=== PATIENT | female | born 1960 | race African-American/Black ===

== ENCOUNTER 2024-03-27 09:50 | Outpatient (AMB) | payer OTHER, SELFPAY ==
[2024-03-27 10:10] VITALS: PULSE 85; O2SAT 97; BMI 30.3
--- NOTE | 2024-03-27 10:10 | MHC.OFFVIS ---
Vital Signs 03/27/24 10:10 Height 5 ft 9 in Weight 205 lb BMI 30.3 Pulse 85 Pulse Source Pulse Oximeter Pulse Oximetry (%) 97 Oxygen Delivery Method Room Air Intake Visit Reasons: sarcoidosis Grazing Examiner Required: No Allergies metronidazole Adverse Reaction (Severe, Verified 03/27/24 10:12) Difficulty Swallowing methotraxate Adverse Reaction (Intermediate, Uncoded 03/27/24 10:37) Difficulty Swallowing HPI Comments Details: The patient is here for pulmonary evaluation. The patient is a 63 year woman with a known history of sarcoidosis. Apparently she had been diagnosed now for many years. The patient did undergo endobronchial ultrasound bronchoscopy for her lymphadenopathy. Positive for granulomas consistent with sarcoidosis. Does also a family history. At that time she had been more symptomatic and she did go on prednisone which she did not tolerate. Subsequently after that she was placed on immunomodulator including methotrexate and she had an adverse reaction with worsening rash. Therefore she stopped that as well. Currently she has not doing much. As far as her respiratory symptoms she has this cough. She describes it a ?smoker's cough?. Moderate severity. She does not bring up any phlegm. The patient does not have any inhalers. She feels like something within her trachea that is abnormal. She is wondering if it should be visualized. In addition to that during the exam she did cough and it sounded like a barky cough. So I do agree the trachea appears to be somewhat inflamed. She may have a component of tracheomalacia however. In addition to that the patient did have an increased heart rate. She has not had an EKG. She understands sarcoid can manifesting different ways. Therefore is reasonable for her to undergo an EKG. The patient should also have a chest x-ray and blood work to assess especially her Mark level and see is elevated to suggest any sarcoid activity. She does have her eyes checked regularly. No evidence of any sarcoid in her eyes. She sometimes have skin changes and I do believe that those are related to sarcoid. We are going to go ahead and start her on inhaled cortical steroids. She does not want taking systemic steroids at this time which is very reasonable. After the blood work EKG and chest x-ray will follow-up. If she has any worsening symptoms she can call. If her x-ray is abnormal I will let her know that she will need a CT scan. Will consider bronchoscopy if is not clear. [facility] Medical History (Updated 03/27/24 @ 21:21 by Jaxon Worrell MD) Tachycardia Chronic cough Sarcoidosis Social History (Updated 03/27/24 @ 10:14 by JAMES Almonte) Patient Tobacco Use Status: Never used Tobacco Review of Systems Const Denies fever(s) Eyes Reports no additional complaints ENT Denies change in voice Card Denies chest pain Resp Denies chest congestion, Reports cough and Denies wheezing GI Reports no additional complaints Musc Reports no additional complaints Skin/Breast Reports rash Neuro Reports no additional complaints Norris/Lymph Denies easy bruising and Denies lymphadenopathy Aller/Immun Denies wheezing Physical Exam Vital Signs: Last Vital Signs Pulse 85 03/27/24 10:10 Pulse Ox 97 03/27/24 10:10 Oxygen Delivery Method Room Air 03/27/24 10:10 BMI result Body Mass Index 30.3 Const General: comfortable HEENT Head: Yes normocephalic Eyes General: appearance normal, both eyes and all related structures Neck Neck: Yes supple Chest Chest palpation & inspection: normal inspection of the chest Resp Effort & Inspection: Actively coughing (croupy) Cardio Rate: tachycardic Rhythm: regular rhythm Heart sounds: S1 normal heart sound present and S2 normal heart sound present GI Palpation (GI): Soft to palpation Skin Lesions: lesion noted (hypopigmented macules ) Extrem General: Yes no clubbing, cyanosis or edema Assessment & Plan Assessment & Plan (1) Sarcoidosis: Code(s): D86.9 - Sarcoidosis, unspecified Category: Medical (2) Chronic cough: Code(s): R05.3 - Chronic cough Category: Medical (3) Tachycardia: Code(s): R00.0 - Tachycardia, unspecified Category: Medical Plan CXR EKG Bloodwork Start QVAR would benefit from PFTs consider bronchoscopy if no better F/U 2-3 months Orders: Orders XR chest 2V Today D86.9 - Sarcoidosis, unspecified Angiotensin Converting Enzyme Today D86.9 - Sarcoidosis, unspecified Erythrocyte Sedimentation Rate Today D86.9 - Sarcoidosis, unspecified PITA Reflex Titer and Pattern Today D86.9 - Sarcoidosis, unspecified ECG 12 lead EKG Today J44.9 - Chronic obstructive pulmonary disease, unspecified Complete Blood Count Auto Diff Today D86.9 - Sarcoidosis, unspecified Medications: New beclomethasone dipropionate 80 mcg/actuation (Qvar RediHaler) 1 inh inhalation BID 10.6 grams 11RF 30 days Coding Level of Care Code New Pt Level 4 (63793) Diagnoses Sarcoidosis D86.9 Chronic cough R05.3 Tachycardia R00.0 Time Spent (min) 40
== END 2024-03-27 10:53 | disposition home or self-care (01) ==
PROVIDERS: PCP Hospitalist; Visit Provider Hospitalist
DX: D86.9 Sarcoidosis, unspecified (principal); R05.3 Chronic cough; R00.0 Tachycardia, unspecified
CPT/HCPCS: 99204

== ENCOUNTER → 2024-03-27 09:50 | Outpatient (BNVA) | payer OTHER, SELFPAY | PROVIDERS: PCP Internal Medicine; Visit Provider Hospitalist ==

== ENCOUNTER 2024-06-01 09:59 | Outpatient (AMB) | payer OTHER, SELFPAY ==
--- NOTE | 2024-06-01 10:19 | A.OFFVIS_ITS ---
Vital Signs 06/01/24 10:31 Height 5 ft 9 in Weight 198 lb BMI 29.2 Pulse 74 Pulse Source Pulse Oximeter Pulse Oximetry (%) 97 Oxygen Delivery Method Room Air Intake Visit Reasons: Sarcoidosis Bank President Required: No Allergies metronidazole Adverse Reaction (Severe, Verified 06/01/24 10:33) Difficulty Swallowing methotraxate Adverse Reaction (Intermediate, Uncoded 06/01/24 10:33) Difficulty Swallowing HPI Comments Details: The patient is a 63 year woman with a known history of sarcoidosis. Apparently she had been diagnosed now for many years. The patient did undergo endo bronchial ultrasound bronchoscopy for her lymphadenopathy. Positive for granulomas consistent with sarcoidosis. Does also a family history. At that time she had been more symptomatic and she did go on prednisone which she did not tolerate. Subsequently after that she was placed on immunomodulator including methotrexate and she had an adverse reaction with worsening rash. Therefore she stopped that as well. Currently she has not doing much. As far as her respiratory symptoms she has this cough. She describes it a ?smoker's cough?. Moderate severity. She does not bring up any phlegm. The patient does not have any inhalers. She feels like something within her trachea that is abnormal. She is wondering if it should be visualized. In addition to that during the exam she did cough and it sounded like a barky cough. So I do agree the trachea appears to be somewhat inflamed. She may have a component of tracheomalacia however. In addition to that the patient did have an increased heart rate. She has not had an EKG. She understands sarcoid can manifesting different ways. Therefore is reasonable for her to undergo an EKG. The patient should also have a chest x-ray and blood work to assess especially her Mark level and see is elevated to suggest any sarcoid activity. She does have her eyes checked regularly. No evidence of any sarcoid in her eyes. She sometimes have skin changes and I do believe that those are related to sarcoid. We are going to go ahead and start her on inhaled cortical steroids. She does not want taking systemic steroids at this time which is very reasonable. After the blood work EKG and chest x-ray will follow-up. If she has any worsening symptoms she can call. If her x-ray is abnormal I will let her know that she will need a CT scan. Will consider bronchoscopy if is not clear. 06/01/2024 the patient is here for a pulmonary follow-up visit. The patient overall has been doing well. She did start the inhaler has been helpful. Her cough and chest tightness have improved. She did have blood work including an Mark level which were all normal. Her eosinophils were also normal. Sedimentation rate normal. And she did have a chest x-ray with the evidence of any active disease. Therefore no evidence of any active sarcoid. The patient did not have an EKG. I did reassure her that there is no evidence of any active disease. The patient however states that she found that there was an issue going on in her attic. They found significant amount of mold due to water leakage. She is concerned that this could have been the result of her ongoing respiratory symptoms. She is going to have the mold abated at this time. Seems like will be a big to do as far as removal and repair. In the meantime she is going to continue with the current respiratory inhaler. Since the patient is doing well plan to follow-up in a year's time follow-up with an x-ray and blood work. The patient has any issues prior to that she will call for an earlier assessment. [facility] Medical History (Updated 03/27/24 @ 21:21 by Jaxon Worrell MD) Tachycardia Chronic cough Sarcoidosis Social History (Updated 03/27/24 @ 10:14 by JAMES Almonte) Patient Tobacco Use Status: Never used Tobacco Review of Systems Const Denies fever(s) Eyes Reports no additional complaints ENT Denies change in voice Card Denies chest pain Resp Denies chest congestion, Reports cough and Denies wheezing GI Reports no additional complaints Musc Reports no additional complaints Skin/Breast Reports rash Neuro Reports no additional complaints Norris/Lymph Denies easy bruising and Denies lymphadenopathy Aller/Immun Denies wheezing Physical Exam Vital Signs: Last Vital Signs Pulse 74 06/01/24 10:31 Pulse Ox 97 06/01/24 10:31 Oxygen Delivery Method Room Air 06/01/24 10:31 BMI result Body Mass Index 29.2 Const General: comfortable HEENT Head: Yes normocephalic Eyes General: appearance normal, both eyes and all related structures Neck Neck: Yes supple Chest Chest palpation & inspection: normal inspection of the chest Resp Effort & Inspection: normal respiratory effort Auscultation: clear to auscultation bilaterally Cardio Rate: tachycardic Rhythm: regular rhythm Heart sounds: S1 normal heart sound present and S2 normal heart sound present GI Palpation (GI): Soft to palpation Skin Lesions: lesion noted (hypopigmented macules ) Extrem General: Yes no clubbing, cyanosis or edema Assessment & Plan Assessment & Plan (1) Sarcoidosis: Code(s): D86.9 - Sarcoidosis, unspecified Category: Medical (2) Chronic cough: Code(s): R05.3 - Chronic cough Category: Medical Plan continue QVAR would benefit from PFTs next year CXR in 1 year Bloodwork in 1 year F/U 12 months Orders: Orders Pneumococcal 20 Immunization Today D86.9 - Sarcoidosis, unspecified Coding Level of Care Code Est Pt Level 4 (99622) Diagnoses Sarcoidosis D86.9 Chronic cough R05.3 Time Spent (min) 17
[2024-06-01 10:31] VITALS: PULSE 74; O2SAT 97; BMI 29.2
== END 2024-06-01 11:12 | disposition home or self-care (01) ==
PROVIDERS: PCP Hospitalist; Visit Provider Hospitalist
DX: D86.9 Sarcoidosis, unspecified (principal); R05.3 Chronic cough
CPT/HCPCS: 99214

== ENCOUNTER → 2024-06-01 09:59 | Outpatient (BNVA) | payer OTHER, SELFPAY | PROVIDERS: PCP Hospitalist; Visit Provider Hospitalist | DX: D86.9 Sarcoidosis, unspecified (principal); R05.3 Chronic cough; Z23 Encounter for immunization | CPT/HCPCS: 90471; 90677 ==

== ENCOUNTER 2025-07-03 09:20 | Outpatient (AMB) | payer OTHER, SELFPAY ==
--- OUTSIDE RECORDS SUMMARY | 2024-09-28 04:30 | XMS_ITS ---
Author Organization [facility] Address [address] [place] [address] Care Team Providers Care Hydraulic Boom Operator Name Role Phone MARK RATLIFF Primary Care Provider Radha Scott Unavailable [phone] REASON FOR VISIT 4 WK F/U Medications Medication SIG (Take, Route, Frequency, Duration) Notes Start Date End Date Status Wegovy 0.5 MG/0.5ML 0.5 mg Subcutaneous once a week; Duration: 30 day(s) 12/16/2022 Not-Taking Levocetirizine Dihydrochloride 5 MG 1 tablet in the evening Orally Once a day; Duration: 30 days 08/30/2024 Active Wegovy 1 MG/0.5ML 0.5 mL Subcutaneous once a week for 4 weeks; Duration: 30 day(s) 01/07/2023 Not-Taking Ciprofloxacin-dexAMETHason e 0.3-0.1 % 4 drops into affected ear Otic Twice a day; Duration: 7 days 08/30/2024 Active Doxycycline Hyclate 100 MG 1 tablet Oral ly every 12 hrs; Duration: 7 day(s) 01/18/2023 Not-Taking Meloxicam 7.5 MG 1 tablet with food d o not mix with over the counter nsaids Orally Once a day; Duration: 30 day(s) 09/15/2022 Not-Taking Sertraline HCl 100 MG TAKE 1 TABLET BY M OUTH DAILY; Duration: 90 days Active Ferrous Sulfate 325 (65 Fe) MG 1 tablet Orally Once a day; Duration: 90 days Active Lidocaine 5 % 1 patch remove after 12 hours Externally Once a day; Duration: 30 days 09/15/2022 Not-Taking Clotrimazole-Betamethasone 1-0.05 % 1 application Externally Twice a day; Duration: 30 days 05/10/2024 Not-Takin g Voltaren 1 % as directed External ly 3 times a day; Duration: 30 days 03/02/2023 Active amLODIPine Besylate 10 MG TAKE 1 TABLET BY MOUTH EVERY DAY; Duration: 90 Active FreeStyle Lancets - use up to 6 times a day to skin DX E11.8; Duration: 90 days 04/08/2023 Active Irbesartan-hydroCHLOROthia zide 300-12.5 MG TAKE 1 TABLET BY MOUTH EVERY DAY; Duration: 90 Active metFORMIN HCl ER 500 MG TAKE 1 TABLET BY MOUTH FOUR TIMES A DAY; Duration: 90 Active Aspirin 81 MG 1 tablet Orally Once a day; Duration: 90 days Active Multivitamin - 1 tablet Orally Once a day Active Ozempic (2 MG/DOSE) 8 MG/3ML 2 mg Subcutaneous once a week 05/10/2024 Active Encounters Encounter Location Date Provider Diagnosis [address] [address] 09/28/2024 Radha Scott Plan Of Treatment Next Appt Details Provider Name:MARK RATLIFF , 01/16/2026 08:00:00 AM, [address] [place] [address], [place], [address], Progress Notes * Hortencia HYLTON ADOB: [birth year] (64 yo F)Acc No.[id number]:09/28/2024 Progress Notes Patient: Hortencia FAN Provider: Eulalia Scott, :1960 A ge:64 Y S ex:Female Date:09/28/2024 Address:[address] [place], [place] [id number] Pcp:MARK RATLIFF Subjective: * Chief Complaints: * 1 . 4 WK F/U. * Medical History: * Medications: T aking Ozempic (2 MG/DOSE) 8 MG/3ML Solution Pen-injector 2 mg Subcutaneous once a week , Taking Multivitamin - Tablet 1 tablet Orally Once a day , Taking Aspirin 81 MG Tablet Chewable 1 tablet Orally Once a day , Taking Voltaren 1 % Gel as directed Externally 3 times a day , Taking FreeStyle Lancets - Miscellaneous use up to 6 times a day to skin DX E11.8 , Taking amLODIPine Besylate 10 MG Tablet TAKE 1 TABLET BY MOUTH EVERY DAY , Taking metFORMIN HCl ER 500 MG Tablet Extended Release 24 Hour TAKE 1 TABLET BY MOUTH FOUR TIMES A DAY , Taking Irbesartan-hydroCHLOROthiazide 300- 12.5 MG Tablet TAKE 1 TABLET BY MOUTH EVERY DAY , Taking Ferrous Sulfate 325 (65 Fe) MG Tablet 1 tablet Orally Once a day , Taking Sertraline HCl 100 MG Tablet TAKE 1 TABLET BY MOUTH DAILY , Taking Levocetirizine Dihydrochloride 5 MG Tablet 1 tablet in the evening Orally Once a day , Taking Ciprofloxacin-dexAMETHasone 0.3-0.1 % Suspension 4 drops into affected ear Otic Twice a day , Not-Taking Clotrimazole-Betamethasone 1-0.05 % Cream 1 application Externally Twice a day , Not-Taking Lidocaine 5 % Patch 1 patch remove after 12 hours Externally Once a day , Not-Taking Meloxicam 7.5 MG Tablet 1 tablet with food do not mix with over the counter nsaids Orally Once a day , Not-Taking Wegovy 0.5 MG/0.5ML Solution Auto-injector 0.5 mg Subcutaneous once a week , Not-Taking Doxycycline Hyclate 100 MG Tablet 1 tablet Orally every 12 hrs , Not-Taking Wegovy 1 MG/0.5ML Solution Auto-injector 0.5 mL Subcutaneous once a week for 4 weeks Objective: * Vitals: Assessment: Plan: * Treatment: * Procedure Codes: N OSHO NO SHOW FEE * Images: * Electronic signature of Nadir Scott on 07/03/2025 at 10:57 AM EDT Sign off status: Pending * Provider: Eulalia Scott, Date: 11/29/2023 Generated for Mary Lou mora/Dwight/Ashley on: 0 07/03/2025 10:57 AM EDT
[2025-07-03 09:31] VITALS: BP 136/80; PULSE 89; O2SAT 99; BMI 26.9
--- NOTE | 2025-07-03 09:31 | MHC.OFFVIS ---
Vital Signs 07/03/25 09:31 Height 5 ft 9 in Weight 181 lb 14.102 oz BMI 26.9 BP 136/80 Blood Pressure Location Lt brachial Position Sitting Pulse 89 Pulse Source Pulse Oximeter Pulse Oximetry (%) 99 Oxygen Delivery Method Room Air Intake Visit Reasons: sarcoidosis Loan Supervisor Required: No Accompanied by: Self / Same As Patient Allergies metronidazole Adverse Reaction (Severe, Verified 07/03/25 09:37) Difficulty Swallowing methotraxate Adverse Reaction (Intermediate, Uncoded 06/01/24 10:33) Difficulty Swallowing HPI Comments Details: The patient is a 64 year woman with a known history of sarcoidosis. Apparently she had been diagnosed now for many years. The patient did undergo endobronchial ultrasound bronchoscopy for her lymphadenopathy. Positive for granulomas consistent with sarcoidosis. Does also a family history. At that time she had been more symptomatic and she did go on prednisone which she did not tolerate. Subsequently after that she was placed on immunomodulator including methotrexate and she had an adverse reaction with worsening rash. Therefore she stopped that as well. Currently she has not doing much. As far as her respiratory symptoms she has this cough. She describes it a ?smoker's cough?. Moderate severity. She does not bring up any phlegm. The patient does not have any inhalers. She feels like something within her trachea that is abnormal. She is wondering if it should be visualized. In addition to that during the exam she did cough and it sounded like a barky cough. So I do agree the trachea appears to be somewhat inflamed. She may have a component of tracheomalacia however. In addition to that the patient did have an increased heart rate. She has not had an EKG. She understands sarcoid can manifesting different ways. Therefore is reasonable for her to undergo an EKG. The patient should also have a chest x-ray and blood work to assess especially her Mark level and see is elevated to suggest any sarcoid activity. She does have her eyes checked regularly. No evidence of any sarcoid in her eyes. She sometimes have skin changes and I do believe that those are related to sarcoid. We are going to go ahead and start her on inhaled cortical steroids. She does not want taking systemic steroids at this time which is very reasonable. After the blood work EKG and chest x-ray will follow-up. If she has any worsening symptoms she can call. If her x-ray is abnormal I will let her know that she will need a CT scan. Will consider bronchoscopy if is not clear. 06/01/2024 the patient is here for a pulmonary follow-up visit. The patient overall has been doing well. She did start the inhaler has been helpful. Her cough and chest tightness have improved. She did have blood work including an Mark level which were all normal. Her eosinophils were also normal. Sedimentation rate normal. And she did have a chest x-ray with the evidence of any active disease. Therefore no evidence of any active sarcoid. The patient did not have an EKG. I did reassure her that there is no evidence of any active disease. The patient however states that she found that there was an issue going on in her attic. They found significant amount of mold due to water leakage. She is concerned that this could have been the result of her ongoing respiratory symptoms. She is going to have the mold abated at this time. Seems like will be a big to do as far as removal and repair. In the meantime she is going to continue with the current respiratory inhaler. Since the patient is doing well plan to follow-up in a year's time follow-up with an x-ray and blood work. The patient has any issues prior to that she will call for an earlier assessment. 07/03/2025 the patient is here for pulmonary follow-up visit. Overall she is doing fair. She does complaint of episodes of fluttering sensation in the chest area. She also has other episodes of chest tightness and coughing. She does use the QVAR with good effect. The patient also has been noticing some buzzing sensations in her right ear. Denies any rashes or any other complaints. She did not undergo any of the studies requested. Will go ahead and give her lab slips for blood work in addition to also an EKG and also a chest x-ray. She can have all the studies done at [facility]. When she returns in the spring will have her get pulmonary function studies as well. [facility] Medical History (Updated 03/27/24 @ 21:21 by Jaxon Worrell MD) Tachycardia Chronic cough Sarcoidosis Social History Patient Tobacco Use Status: Never used Tobacco Review of Systems Const Denies fever(s) Eyes Reports no additional complaints ENT Denies change in voice Card Denies chest pain and Reports palpitations Resp Denies chest congestion, Reports cough and Denies wheezing GI Reports no additional complaints Musc Reports no additional complaints Skin/Breast Reports rash Neuro Reports no additional complaints Endo Reports palpitations Norris/Lymph Denies easy bruising and Denies lymphadenopathy Aller/Immun Denies wheezing Physical Exam Vital Signs: Last Vital Signs Pulse 89 07/03/25 09:31 BP 136/80 07/03/25 09:31 Pulse Ox 99 07/03/25 09:31 Oxygen Delivery Method Room Air 07/03/25 09:31 BMI result Body Mass Index 26.9 Const General: comfortable HEENT Head: Yes normocephalic Eyes General: appearance normal, both eyes and all related structures Neck Neck: Yes supple Chest Chest palpation & inspection: normal inspection of the chest Resp Effort & Inspection: normal respiratory effort Auscultation: clear to auscultation bilaterally Cardio Rate: tachycardic Rhythm: regular rhythm Heart sounds: S1 normal heart sound present and S2 normal heart sound present GI Palpation (GI): Soft to palpation Skin Lesions: lesion noted (hypopigmented macules ) Extrem General: Yes no clubbing, cyanosis or edema Assessment & Plan Assessment & Plan (1) Sarcoidosis: Code(s): D86.9 - Sarcoidosis, unspecified Category: Medical (2) Chronic cough: Code(s): R05.3 - Chronic cough Category: Medical (3) Tachycardia: Code(s): R00.0 - Tachycardia, unspecified Category: Medical Plan continue QVAR CXR Bloodwork EKG F/U 6-8 months Orders: Orders Immunoglobulin E Today D86.9 - Sarcoidosis, unspecified, R00.0 - Tachycardia, unspecified, R05.3 - Chronic cough Angiotensin Converting Enzyme Today D86.9 - Sarcoidosis, unspecified, R00.0 - Tachycardia, unspecified, R05.3 - Chronic cough Basic Metabolic Panel Today D86.9 - Sarcoidosis, unspecified, R00.0 - Tachycardia, unspecified, R05.3 - Chronic cough Complete Blood Count Auto Diff Today D86.9 - Sarcoidosis, unspecified, R00.0 - Tachycardia, unspecified, R05.3 - Chronic cough Magnesium Today D86.9 - Sarcoidosis, unspecified, R00.0 - Tachycardia, unspecified, R05.3 - Chronic cough XR chest 2V Today D86.9 - Sarcoidosis, unspecified, R00.0 - Tachycardia, unspecified, R05.3 - Chronic cough ECG 12 lead EKG Today D86.9 - Sarcoidosis, unspecified, J44.9 - Chronic obstructive pulmonary disease, unspecified, R00.0 - Tachycardia, unspecified, R05.3 - Chronic cough Coding Level of Care Code Est Pt Level 4 (49755) Complex EM visit Add On G2211 Diagnoses Sarcoidosis D86.9 Chronic cough R05.3 Tachycardia R00.0 Time Spent (min) 17
--- OUTSIDE RECORDS SUMMARY | 2025-07-03 10:57 | XMS_ITS | Patient Health Record ---
Author Organization [email or web address] [facility] Address [address] [place] [address] Care Team Providers Care Environmental Science Instructor Name Role Phone MARK RATLIFF Primary Care Provider Radha Scott Unavailable [phone] Allergies Allergen (clinical drug ingredient) Drug/Non Drug Allergy documented on EMR Reaction Allergy Type Onset Date Status Methotrexate Unknown Drug Allergy Acti ve Pneumodoron #1 Unknown Drug Allergy Ac tive semaglutide Wegovy nausea Drug Allergy Activ e Results Component Value Reference Range Notes Comp. Metabolic Panel ([id number] Reviewed date:06/20/2025 07:57:53 AM Interpretation: Performing Lab:[facility], [address] [place] [address], Phone - [phone], Director - Tosha Notes/Report: Glucose 97 70-99 mg/dL BUN 12 8-27 mg/dL Creatinine 0.70 0.57-1.00 mg/dL eGFR 98 >59 mL/min/1.73 BUN/Creatinine Ratio 17 12-28 Sodium 142 134-144 mmol/L Potassium 3.7 3.5-5.2 mmol/L Chloride 100 96-106 mmol/L Carbon Dioxide, Total 24 20-29 mmol/L Calcium 10.1 8.7-10.3 mg/dL Protein, Total 6.8 6.0-8.5 g/dL Albumin 4.2 3.9-4.9 g/dL Globulin, Total 2.6 1.5-4.5 g/dL Bilirubin, Total 0.5 0.0-1.2 mg/dL Alkaline Phosphatase 117 44-121 IU/L Effective June 25, 2025 Alkaline Phosphatase reference interval will be changing to: Age Male Female 0 - 5 days 47 - 127 47 - 127 6 - 10 days 29 - 242 29 - 242 11 - 20 days 109 - 357 109 - 357 21 - 30 days 94 - 494 94 - 494 1 - 2 months 149 - 539 149 - 539 3 - 6 months 131 - 452 131 - 452 7 - 11 months 117 - 401 117 - 401 12 months - 6 years 158 - 369 158 - 369 7 - 12 years 150 - 409 150 - 409 13 years 156 - 435 78 - 227 14 years 114 - 375 64 - 161 15 years 88 - 279 56 - 134 16 years 74 - 207 51 - 121 17 years 63 - 161 47 - 113 18 - 20 years 51 - 125 42 - 106 21 - 50 years 47 - 123 41 - 116 51 - 80 years 49 - 135 51 - 125 >80 years 48 - 129 48 - 129 AST (SGOT) 16 0-40 IU/L ALT (SGPT) 8 0-32 IU/L Lipid Panel-[id number] Reviewed date:06/20/2025 07:57:49 AM Interpretation: Performing Lab:[email or web address], [address] [place] [address], Phone - [phone], Director - MDPaulinay Notes/Report: Cholesterol, Total 170 100-199 mg/dL Triglycerides 63 0-149 mg/dL HDL Cholesterol 87 >39 mg/dL VLDL Cholesterol Florencio 12 5-40 mg/dL LDL Chol Calc ([facility]) 71 0-99 mg/dL Albumin/Creatinine Ratio,Uri ne-[id number] Reviewed date:06/20/2025 07:57:58 AM Interpretation: Performing Lab:[email or web address], [address] [place] [address], Phone - [phone], Director - MDJodry Notes/Report: Creatinine, Urine 118.3 Not Estab. mg/dL Albumin, Urine 5.9 Not Estab. ug/mL Alb/Creat Ratio 5 0-29 mg/g creat Normal: 0 - 29 Moderately increased: 30 - 300 Severely increased: >300 CBC With Differential/Platel et-[id number] Reviewed date:06/20/2025 07:57:35 AM Interpretation: Performing Lab:[email or web address], [address] [place] [address], Phone - [phone], Director - Jodry Notes/Report: WBC 7.8 3.4-10.8 x10E3/uL RBC 3.69 3.77-5.28 x10E6/uL Hemoglobin 11.3 11.1-15.9 g/dL Hematocrit 34.6 34.0-46.6 % MCV 94 79-97 fL MCH 30.6 26.6-33.0 pg MCHC 32.7 31.5-35.7 g/dL RDW 12.3 11.7-15.4 % Platelets 345 150-450 x10E3/uL Neutrophils 64 Not Estab. % Lymphs 28 Not Estab. % Monocytes 6 Not Estab. % Eos 1 Not Estab. % Basos 1 Not Estab. % Neutrophils (Absolute) 5.0 1.4-7.0 x10E3/uL Lymphs (Absolute) 2.2 0.7-3.1 x10E3/uL Monocytes(Absolute) 0.4 0.1-0.9 x10E3/uL Eos (Absolute) 0.1 0.0-0.4 x10E3/uL Baso (Absolute) 0.1 0.0-0.2 x10E3/uL Immature Granulocytes 0 Not Estab. % Immature Grans (Abs) 0.0 0.0-0.1 x10E3/uL Ferritin-[id number] Reviewed date:06/20/2025 07:57:45 AM Interpretation: Performing Lab:[facility], Phone - [phone], Director - Tosha Notes/Report: Ferritin 75 15-150 ng/mL Hemoglobin [id number] Reviewed date:06/20/2025 07:58:05 AM Interpretation: Performing Lab:[facility] [address] [place] [address], Phone - [phone], Director - Liamdry Notes/Report: Hemoglobin A1c 5.5 4.8-5.6 % . Prediabetes: 5.7 - 6.4 Diabetes: >6.4 Glycemic control for adults with diabetes: <7.0 Iron and TIBC-[id number] Reviewed date:06/20/2025 07:57:41 AM Interpretation: Performing Lab:[facility] [address] [place] [address], Phone - [phone], Director - Tosha Notes/Report: Iron Bind.Cap.(TIBC) 388 250-450 ug/dL UIBC 350 118-369 ug/dL Iron 38 27-139 ug/dL Iron Saturation 10 15-55 % Vitamin B12 and Folate-[id number] 0 Reviewed date:06/20/2025 07:57:30 AM Interpretation: Performing Lab:[facility], [address], [place], Phone - [phone], Director - Tosha Notes/Report: Vitamin B12 303 606-1518 pg/mL Folate (Folic Acid), Serum >20.0 >3.0 ng/mL A serum folate concentration of less than 3.1 ng/mL is considered to represent clinical deficiency. Medications Medication SIG (Take, Route, Frequency, Duration) Notes Start Date End Date Status Sertraline HCl 100 MG TAKE 1 TABLET BY M OUTH DAILY; Duration: 90 days Active Wegovy 1 MG/0.5ML 0.5 mL Subcutaneous once a week for 4 weeks; Duration: 30 day(s) 01/07/2023 Not-Taking Doxycycline Hyclate 100 MG 1 tablet Oral ly every 12 hrs; Duration: 7 day(s) 01/18/2023 Not-Taking Ciprofloxacin-dexAMETHason e 0.3-0.1 % 4 drops into affected ear Otic Twice a day; Duration: 7 days 08/30/2024 Not-Taking Levocetirizine Dihydrochloride 5 MG 1 tablet in the evening Orally Once a day; Duration: 30 days 08/30/2024 Not-Takin g amLODIPine Besylate 10 MG TAKE 1 TABLET BY MOUTH DAILY; Duration: 90 Active Irbesartan-hydroCHLOROthia zide 300-12.5 MG TAKE 1 TABLET BY MOUTH DAILY; Duration: 90 Active Multivitamin - 1 tablet Orally Once a day Active Clotrimazole-Betamethasone 1-0.05 % 1 application Externally Twice a day; Duration: 30 days 05/10/2024 Not-Takin g Ozempic (2 MG/DOSE) 8 MG/3ML 2 mg Subcutaneous once a week 05/10/2024 Active FeroSul 325 (65 Fe) MG TAKE 1 TABLET BY MOUTH EVERY DAY; Duration: 90 Active Voltaren 1 % as directed External ly 3 times a day; Duration: 30 days 03/02/2023 Active Meloxicam 7.5 MG 1 tablet with food d o not mix with over the counter nsaids Orally Once a day; Duration: 30 day(s) 09/15/2022 Not-Taking Aspirin 81 MG 1 tablet Orally Once a day; Duration: 90 days Active Lidocaine 5 % 1 patch remove after 12 hours Externally Once a day; Duration: 30 days 09/15/2022 Not-Taking metFORMIN HCl ER 500 MG TAKE 1 TABLET BY MOUTH FOUR TIMES A DAY; Duration: 90 Active FreeStyle Lancets - use up to 6 times a day to skin DX E11.8; Duration: 90 days 04/08/2023 Active Wegovy 0.5 MG/0.5ML 0.5 mg Subcutaneous once a week; Duration: 30 day(s) 12/16/2022 Not-Taking Immunizations Vaccine Route Administration Date Status Comme nts COVID Moderna Unknown 10/05/2020 Administered COVID Moderna Unknown 11/02/2020 Administered COVID Moderna Unknown 2021 Administered COVID Moderna Unknown 01/31/2022 Administered COVID Moderna Unknown 05/21/2022 Administered Social History Tobacco Use: Social History Observation Description Date Details (start date - stop date) Never Smoker NA - NA Tobacco Use/Smoking Question Answer Notes Are you a nonsmoker Alcohol Screen (Audit-C) Question Answer Notes Did you have a drink containing alcohol in the p ast year? No Points 0 Interpretation Negative Problems Problem Type SNOMED Code ICD Code Onset Dates Problem Status W/U Status Risk Notes Problem Iron deficiency anemia (01859983) Iron deficiency anemia, unspecified (D50.9) Active confirmed Problem Anemia (285131557) Anemia, unspecified (D64.9) Active confirmed Problem Disorder due to type 2 diabetes mellitus (078417717) Type 2 diabetes mellitus with unspecified complications (E11.8) Active confirmed Problem Obesity due to excess calories (220460634) Other obesity due to excess calories (E66.09) Active confirmed Problem Generalized anxiety disorder (46516833) Generalized anxiety disorder (F41.1) Active confirmed Problem Osteoarthritis of knee (624510029) Osteoarthritis of knee, unspecified (M17.9) Active confirmed Problem Paresthesia (finding) (97398350) Paresthesia of skin (R20.2) Active confirmed Problem Abnormal findings on diagnostic imaging of breast (813696284) Other abnormal and inconclusive findings on diagnostic imaging of breast (R92.8) Active confirmed Problem Essential hypertension (22167195) Essential (primary) hypertension (I10) Active confirmed Problem Gastroesophageal reflux disease (760236925) Gastroesophageal reflux disease, unspecified whether esophagitis present (K21.9) Active confirmed Problem Overweight (854646161) Overweight (BMI 25.0-29.9) (E66.3) Active confirmed Vital Signs Heart Rate 91 /min 05/03/2025 Temperature 97.7 degrees Fahrenheit 05/03/2025 Blood pressure diastolic 82 mm Hg 05/03/2025 Oximetry 98 % 05/03/2025 Height 69 in 05/03/2025 Blood pressure systolic 120 mm Hg 05/03/2025 Weight 178.2 lbs 05/03/2025 BMI 26.31 kg/m2 05/03/2025 Encounters Encounter Location Date Provider Diagnosis [address] [address] 08/01/2024 FLORESNURYS RICHARDSONTye Other obesity due to excess calories E66.09 ; Dietary counseling and surveillance Z71.3 and Pain in right knee M25.[address] [address] 08/30/2024 FLORES DEBRATye Other obesity due to excess calories E66.09 ; Dietary counseling and surveillance Z71.3 ; Otalgia, bilateral H92.03 and Paresthesia of skin R20.[address] [address] 05/03/2025 FLORES GUL Type 2 diabetes mellitus with unspecified complications E11.8 ; Essential (primary) hypertension I10 ; Generalized anxiety disorder F41.1 ; Iron deficiency anemia, unspecified D50.9 ; Pain in right leg M79.604 ; Overweight (BMI 25.0-29.9) E66.3 ; Dietary counseling and surveillance Z71.3 and Pulsatile tinnitus, right ear H93.A1 [address] [address] 07/18/[address] [address] 08/07/[address] [place] [address] 11/01/2024 MARK RATLIFF Assessments Encounter Date Diagnosis (ICD Code) Assessment Notes Treatment Notes Treatment Clinical Notes Section Notes 08/01/2024 Other obesity due to excess calories (ICD-10 - E66.09) Ms. yHlton is a 63 year old lady with DM2, hypercalcemia, pulmonary sarcoidosis followed by Dr. Worrell, generalized anxiety disorder and hypertension here today for medical weight management. We saw her last June. She lost 6 lbs since last visit. Be consistent with following low-calorie diet. Start using stationary bike and increase exercise duration and intensity as tolerated. Plan is as follows: Dietary recommendations. Food recall was done today and patient advised to be on low calorie, low carbohydrate diet. Restrict calories to less than 1500 kcal in 24 hours. Low glycemic index foods and encouraged. Meal replacements were recommended. Advised to use [id number] multivitamins and vitamin D. Advised to use calorie counter and adhere to portion control. Monthly goal is to lose 4-6 pounds Pharmacotherapy. Continue Ozempic (2 MG/DOSE) 8 MG/3ML. Side effects explained to the patient. Goal is to lose 3-5% of body weight in 3 months. Exercise. Patient encouraged to use stationary bike or do low impact exercises. Increase frequency, intensity and duration of exercise. Encouraged to burn at least 250-500 kcal in one session. Assess. Different risk factors discussed with the patient and addressed Advise. Patient was given clear And specific advise that she will comply with Low-calorie diet and try not to exceed more than 1300 kcal in 24 hours. Agree. Mutually agreed to work together to achieve appropriate goals Assist. Motivational interviewing done. Arrange. Follow-up appointment arranged. Counseling. 15 minutes spent Face to face with the patient more than 50% of time was spent counseling Type II diabetes mellitus. Last A1c 5.9. She is on right medications. She has seen her travel freight and passenger agent in the past 1 year. Foot care discussed. She does not see an botany technician at this point. Pain in right knee. IOrdered X ray of the Knee, right Scribe services used to formulate this note under HIPAA compliance and under [place] law mandated for scribe services. Patient aware of service. Verbal consent and written consent taken from the patient. Patient understands and verbalizes understanding of the scribes services and all questions answered regarding scribes services. Patient agrees to use of scribes services. 08/01/2024 Dietary counseling and surveillance (ICD-10 - Z71.3) Ms. Hylton is a 63 year old lady with DM2, hypercalcemia, pulmonary sarcoidosis followed by Dr. Worrell, generalized anxiety disorder and hypertension here today for medical weight management. We saw her last June. She lost 6 lbs since last visit. Be consistent with following low-calorie diet. Start using stationary bike and increase exercise duration and intensity as tolerated. Plan is as follows: Dietary recommendations. Food recall was done today and patient advised to be on low calorie, low carbohydrate diet. Restrict calories to less than 1500 kcal in 24 hours. Low glycemic index foods and encouraged. Meal replacements were recommended. Advised to use iyoc-etw-ahrllph multivitamins and vitamin D. Advised to use calorie counter and adhere to portion control. Monthly goal is to lose 4-6 pounds Pharmacotherapy. Continue Ozempic (2 MG/DOSE) 8 MG/3ML. Side effects explained to the patient. Goal is to lose 3-5% of body weight in 3 months. Exercise. Patient encouraged to use stationary bike or do low impact exercises. Increase frequency, intensity and duration of exercise. Encouraged to burn at least 250-500 kcal in one session. Assess. Different risk factors discussed with the patient and addressed Advise. Patient was given clear And specific advise that she will comply with Low-calorie diet and try not to exceed more than 1300 kcal in 24 hours. Agree. Mutually agreed to work together to achieve appropriate goals Assist. Motivational interviewing done. Arrange. Follow-up appointment arranged. Counseling. 15 minutes spent Face to face with the patient more than 50% of time was spent counseling Type II diabetes mellitus. Last A1c 5.9. She is on right medications. She has seen her travel freight and passenger agent in the past 1 year. Foot care discussed. She does not see an botany technician at this point. Pain in right knee. IOrdered X ray of the Knee, right Scribe services used to formulate this note under HIPAA compliance and under [place] law mandated for scribe services. Patient aware of service. Verbal consent and written consent taken from the patient. Patient understands and verbalizes understanding of the scribes services and all questions answered regarding scribes services. Patient agrees to use of scribes services. 08/30/2024 Other obesity due to excess calories (ICD-10 - E66.09) Ms. Hylton is a 64 year old lady with DM2, hypercalcemia, pulmonary sarcoidosis followed by Dr. Worrell, generalized anxiety disorder and hypertension here today for medical weight management. We saw her last July. She weighs 190 2 days ago. No weight change since last visit. She was also upset today because no one returned her call a few weeks ago because she needed antibiotics for swelling of the right avila. But later she said that someone called her and told her to come for appointment to be evaluated and to see if she needs antibiotics. She used F word and said that she went to urgent care and got treated. I asked patient not to use foul/abusive language and I will answer her questions. I first apologized to the patient that someone should have contacted you as soon as you called but they did answer her message. We wanted to evaluate the patient if she is really needed antibiotics. Side effects of the antibiotics discussed with the patient that it may lead to C. difficile colitis, resistance in future. We answered her questions and I also apologized for inconvenience at the end of the visit. Plan is as follows: Dietary recommendations. Food recall was done today and patient advised to be on low calorie, low carbohydrate diet. Restrict calories to less than 1500 kcal in 24 hours. Low glycemic index foods and encouraged. Meal replacements were recommended. Advised to use rlpb-xsb-kvbeneu multivitamins and vitamin D. Advised to use calorie counter and adhere to portion control. Monthly goal is to lose 4-6 pounds Pharmacotherapy. Continue Ozempic (2 MG/DOSE) 8 MG/3ML. Side effects explained to the patient. Goal is to lose 3-5% of body weight in 3 months. Exercise. Patient encouraged to use stationary bike or do low impact exercises. Increase frequency, intensity and duration of exercise. Encouraged to burn at least 250-500 kcal in one session. Assess. Different risk factors discussed with the patient and addressed Advise. Patient was given clear And specific advise that she will comply with Low-calorie diet and try not to exceed more than 1300 kcal in 24 hours. Agree. Mutually agreed to work together to achieve appropriate goals Assist. Motivational interviewing done. Arrange. Follow-up appointment arranged. Counseling. 22 minutes spent Face to face with the patient more than 50% of time was spent counseling Type II diabetes mellitus. She is on right medications. She has seen her travel freight and passenger agent in the past 1 year. Foot care discussed. She does not see an botany technician at this point. Otalgia. Start Levocetirizine Dihydrochloride 5 MG once a day along with Ciprofloxacin-dexa methasone drops into affected ear BID once a day. left shoulder pain DDX calicific tendinitis/bursiti s, osteoarthritis. Ordered x-ray and referral to orthopedics Right hand numbness. Etiology unclear at this point. It can be osteoarthritis or question of nerve injury or compression from her fall. There is no loss of strength or decreased range of motion of the right hand or fingers. Grasp was normal. We will do x-ray and she was advised to observe for the next 3-4 weeks and if there is no improvement we will do EMG study. we answered all her questions and concerns and I also apologized personally before inconvenience and she was advised to activate her [employer] ct which is the fastest and easiest way to communicate with the office. She understood and agreed. Scribe services used to formulate this note under HIPAA compliance and under [place] law mandated for scribe services. Patient aware of service. Verbal consent and written consent taken from the patient. Patient understands and verbalizes understanding of the scribes services and all questions answered regarding scribes services. Patient agrees to use of scribes services. 05/03/2025 Type 2 diabetes mellitus with unspecified complications (ICD-10 - E11.8) Hortencia is 64 years old ladywith diabetes mellitus type 2 and she follows up with botany technician at [facility], hypertension, acid reflux, generalized anxiety disorder, iron deficiency anemia, multiple joint osteoarthritis and she goes to orthopedic for intra-articular injection and bilateral knee joints. Diabetes mellitus type 2 with unspecified complications. She is currently on Metformin ER 500 mg and she is taking 4 tablets a day along with Ozempic 2 mg every weekly. She follows up with endocrinology at [facility]. She sees ophthalmology once a year. She is losing weight and maintaining. She was advised to do blood work to check A1c, renal function and urine for albumin and creatinine. Hypertension. Blood pressure well controlled on amlodipine 10 mg daily and irbesartan/HCTZ 300/12.5 mg daily. Generalized anxiety disorder. Continue on sertraline 100 mg daily. Iron deficiency anemia. She is on iron supplements and we will check CBC, ferritin levels and iron studies. Right leg pain. Exam is normal. Most likely musculoskeletal pain which started after exercise regimen and stretching. Take Tylenol as needed, cold compresses, regular stretching and avoid strenuous activity. She is not interested in physical therapy at this point. Tinnitus right ear. It can be early signs of sensory neural hearing loss. Discussed if needed we will refer to ENT. Overweight. She was encouraged on losing weight. Her goal weight should be 160 pounds. Continue current regimen. Screening blood work ordered. 08/30/2024 Dietary counseling and surveillance (ICD-10 - Z71.3) Ms. Hylton is a 64 year old lady with DM2, hypercalcemia, pulmonary sarcoidosis followed by Dr. Worrell, generalized anxiety disorder and hypertension here today for medical weight management. We saw her last July. She weighs 190 2 days ago. No weight change since last visit. She was also upset today because no one returned her call a few weeks ago because she needed antibiotics for swelling of the right avila. But later she said that someone called her and told her to come for appointment to be evaluated and to see if she needs antibiotics. She used F word and said that she went to urgent care and got treated. I asked patient not to use foul/abusive language and I will answer her questions. I first apologized to the patient that someone should have contacted you as soon as you called but they did answer her message. We wanted to evaluate the patient if she is really needed antibiotics. Side effects of the antibiotics discussed with the patient that it may lead to C. difficile colitis, resistance in future. We answered her questions and I also apologized for inconvenience at the end of the visit. Plan is as follows: Dietary recommendations. Food recall was done today and patient advised to be on low calorie, low carbohydrate diet. Restrict calories to less than 1500 kcal in 24 hours. Low glycemic index foods and encouraged. Meal replacements were recommended. Advised to use hfyl-vxy-xbosboy multivitamins and vitamin D. Advised to use calorie counter and adhere to portion control. Monthly goal is to lose 4-6 pounds Pharmacotherapy. Continue Ozempic (2 MG/DOSE) 8 MG/3ML. Side effects explained to the patient. Goal is to lose 3-5% of body weight in 3 months. Exercise. Patient encouraged to use stationary bike or do low impact exercises. Increase frequency, intensity and duration of exercise. Encouraged to burn at least 250-500 kcal in one session. Assess. Different risk factors discussed with the patient and addressed Advise. Patient was given clear And specific advise that she will comply with Low-calorie diet and try not to exceed more than 1300 kcal in 24 hours. Agree. Mutually agreed to work together to achieve appropriate goals Assist. Motivational interviewing done. Arrange. Follow-up appointment arranged. Counseling. 22 minutes spent Face to face with the patient more than 50% of time was spent counseling Type II diabetes mellitus. She is on right medications. She has seen her travel freight and passenger agent in the past 1 year. Foot care discussed. She does not see an botany technician at this point. Otalgia. Start Levocetirizine Dihydrochloride 5 MG once a day along with Ciprofloxacin-dexa methasone drops into affected ear BID once a day. left shoulder pain DDX calicific tendinitis/bursiti s, osteoarthritis. Ordered x-ray and referral to orthopedics Right hand numbness. Etiology unclear at this point. It can be osteoarthritis or question of nerve injury or compression from her fall. There is no loss of strength or decreased range of motion of the right hand or fingers. Grasp was normal. We will do x-ray and she was advised to observe for the next 3-4 weeks and if there is no improvement we will do EMG study. we answered all her questions and concerns and I also apologized personally before inconvenience and she was advised to activate her [employer] ct which is the fastest and easiest way to communicate with the office. She understood and agreed. Scribe services used to formulate this note under HIPAA compliance and under [place] law mandated for scribe services. Patient aware of service. Verbal consent and written consent taken from the patient. Patient understands and verbalizes understanding of the scribes services and all questions answered regarding scribes services. Patient agrees to use of scribes services. 05/03/2025 Essential (primary) hypertension (ICD-10 - I10) Hortencia is 64 years old ladywith diabetes mellitus type 2 and she follows up with botany technician at [facility], hypertension, acid reflux, generalized anxiety disorder, iron deficiency anemia, multiple joint osteoarthritis and she goes to orthopedic for intra-articular injection and bilateral knee joints. Diabetes mellitus type 2 with unspecified complications. She is currently on Metformin ER 500 mg and she is taking 4 tablets a day along with Ozempic 2 mg every weekly. She follows up with endocrinology at [facility]. She sees ophthalmology once a year. She is losing weight and maintaining. She was advised to do blood work to check A1c, renal function and urine for albumin and creatinine. Hypertension. Blood pressure well controlled on amlodipine 10 mg daily and irbesartan/HCTZ 300/12.5 mg daily. Generalized anxiety disorder. Continue on sertraline 100 mg daily. Iron deficiency anemia. She is on iron supplements and we will check CBC, ferritin levels and iron studies. Right leg pain. Exam is normal. Most likely musculoskeletal pain which started after exercise regimen and stretching. Take Tylenol as needed, cold compresses, regular stretching and avoid strenuous activity. She is not interested in physical therapy at this point. Tinnitus right ear. It can be early signs of sensory neural hearing loss. Discussed if needed we will refer to ENT. Overweight. She was encouraged on losing weight. Her goal weight should be 160 pounds. Continue current regimen. Screening blood work ordered. 05/03/2025 Generalized anxiety disorder (ICD-10 - F41.1) Hortencia is 64 years old ladywith diabetes mellitus type 2 and she follows up with botany technician at [facility], hypertension, acid reflux, generalized anxiety disorder, iron deficiency anemia, multiple joint osteoarthritis and she goes to orthopedic for intra-articular injection and bilateral knee joints. Diabetes mellitus type 2 with unspecified complications. She is currently on Metformin ER 500 mg and she is taking 4 tablets a day along with Ozempic 2 mg every weekly. She follows up with endocrinology at [facility]. She sees ophthalmology once a year. She is losing weight and maintaining. She was advised to do blood work to check A1c, renal function and urine for albumin and creatinine. Hypertension. Blood pressure well controlled on amlodipine 10 mg daily and irbesartan/HCTZ 300/12.5 mg daily. Generalized anxiety disorder. Continue on sertraline 100 mg daily. Iron deficiency anemia. She is on iron supplements and we will check CBC, ferritin levels and iron studies. Right leg pain. Exam is normal. Most likely musculoskeletal pain which started after exercise regimen and stretching. Take Tylenol as needed, cold compresses, regular stretching and avoid strenuous activity. She is not interested in physical therapy at this point. Tinnitus right ear. It can be early signs of sensory neural hearing loss. Discussed if needed we will refer to ENT. Overweight. She was encouraged on losing weight. Her goal weight should be 160 pounds. Continue current regimen. Screening blood work ordered. 08/30/2024 Otalgia, bilateral (ICD-10 - H92.03) Ms. Hylton is a 64 year old lady with DM2, hypercalcemia, pulmonary sarcoidosis followed by Dr. Worrell, generalized anxiety disorder and hypertension here today for medical weight management. We saw her last July. She weighs 190 2 days ago. No weight change since last visit. She was also upset today because no one returned her call a few weeks ago because she needed antibiotics for swelling of the right avila. But later she said that someone called her and told her to come for appointment to be evaluated and to see if she needs antibiotics. She used F word and said that she went to urgent care and got treated. I asked patient not to use foul/abusive language and I will answer her questions. I first apologized to the patient that someone should have contacted you as soon as you called but they did answer her message. We wanted to evaluate the patient if she is really needed antibiotics. Side effects of the antibiotics discussed with the patient that it may lead to C. difficile colitis, resistance in future. We answered her questions and I also apologized for inconvenience at the end of the visit. Plan is as follows: Dietary recommendations. Food recall was done today and patient advised to be on low calorie, low carbohydrate diet. Restrict calories to less than 1500 kcal in 24 hours. Low glycemic index foods and encouraged. Meal replacements were recommended. Advised to use [id number] multivitamins and vitamin D. Advised to use calorie counter and adhere to portion control. Monthly goal is to lose 4-6 pounds Pharmacotherapy. Continue Ozempic (2 MG/DOSE) 8 MG/3ML. Side effects explained to the patient. Goal is to lose 3-5% of body weight in 3 months. Exercise. Patient encouraged to use stationary bike or do low impact exercises. Increase frequency, intensity and duration of exercise. Encouraged to burn at least 250-500 kcal in one session. Assess. Different risk factors discussed with the patient and addressed Advise. Patient was given clear And specific advise that she will comply with Low-calorie diet and try not to exceed more than 1300 kcal in 24 hours. Agree. Mutually agreed to work together to achieve appropriate goals Assist. Motivational interviewing done. Arrange. Follow-up appointment arranged. Counseling. 22 minutes spent Face to face with the patient more than 50% of time was spent counseling Type II diabetes mellitus. She is on right medications. She has seen her travel freight and passenger agent in the past 1 year. Foot care discussed. She does not see an botany technician at this point. Otalgia. Start Levocetirizine Dihydrochloride 5 MG once a day along with Ciprofloxacin-dexa methasone drops into affected ear BID once a day. left shoulder pain DDX calicific tendinitis/bursiti s, osteoarthritis. Ordered x-ray and referral to orthopedics Right hand numbness. Etiology unclear at this point. It can be osteoarthritis or question of nerve injury or compression from her fall. There is no loss of strength or decreased range of motion of the right hand or fingers. Grasp was normal. We will do x-ray and she was advised to observe for the next 3-4 weeks and if there is no improvement we will do EMG study. we answered all her questions and concerns and I also apologized personally before inconvenience and she was advised to activate her [employer] ct which is the fastest and easiest way to communicate with the office. She understood and agreed. Scribe services used to formulate this note under HIPAA compliance and under [place] law mandated for scribe services. Patient aware of service. Verbal consent and written consent taken from the patient. Patient understands and verbalizes understanding of the scribes services and all questions answered regarding scribes services. Patient agrees to use of scribes services. 08/01/2024 Pain in right knee (ICD-10 - M25.561) Ms. Hylton is a 63 year old lady with DM2, hypercalcemia, pulmonary sarcoidosis followed by Dr. Worrell, generalized anxiety disorder and hypertension here today for medical weight management. We saw her last June. She lost 6 lbs since last visit. Be consistent with following low-calorie diet. Start using stationary bike and increase exercise duration and intensity as tolerated. Plan is as follows: Dietary recommendations. Food recall was done today and patient advised to be on low calorie, low carbohydrate diet. Restrict calories to less than 1500 kcal in 24 hours. Low glycemic index foods and encouraged. Meal replacements were recommended. Advised to use [id number] multivitamins and vitamin D. Advised to use calorie counter and adhere to portion control. Monthly goal is to lose 4-6 pounds Pharmacotherapy. Continue Ozempic (2 MG/DOSE) 8 MG/3ML. Side effects explained to the patient. Goal is to lose 3-5% of body weight in 3 months. Exercise. Patient encouraged to use stationary bike or do low impact exercises. Increase frequency, intensity and duration of exercise. Encouraged to burn at least 250-500 kcal in one session. Assess. Different risk factors discussed with the patient and addressed Advise. Patient was given clear And specific advise that she will comply with Low-calorie diet and try not to exceed more than 1300 kcal in 24 hours. Agree. Mutually agreed to work together to achieve appropriate goals Assist. Motivational interviewing done. Arrange. Follow-up appointment arranged. Counseling. 15 minutes spent Face to face with the patient more than 50% of time was spent counseling Type II diabetes mellitus. Last A1c 5.9. She is on right medications. She has seen her travel freight and passenger agent in the past 1 year. Foot care discussed. She does not see an botany technician at this point. Pain in right knee. IOrdered X ray of the Knee, right Scribe services used to formulate this note under HIPAA compliance and under [place] law mandated for scribe services. Patient aware of service. Verbal consent and written consent taken from the patient. Patient understands and verbalizes understanding of the scribes services and all questions answered regarding scribes services. Patient agrees to use of scribes services. 08/30/2024 Paresthesia of skin (ICD-10 - R20.2) Ms. Hylton is a 64 year old lady with DM2, hypercalcemia, pulmonary sarcoidosis followed by Dr. Worrell, generalized anxiety disorder and hypertension here today for medical weight management. We saw her last July. She weighs 190 2 days ago. No weight change since last visit. She was also upset today because no one returned her call a few weeks ago because she needed antibiotics for swelling of the right avila. But later she said that someone called her and told her to come for appointment to be evaluated and to see if she needs antibiotics. She used F word and said that she went to urgent care and got treated. I asked patient not to use foul/abusive language and I will answer her questions. I first apologized to the patient that someone should have contacted you as soon as you called but they did answer her message. We wanted to evaluate the patient if she is really needed antibiotics. Side effects of the antibiotics discussed with the patient that it may lead to C. difficile colitis, resistance in future. We answered her questions and I also apologized for inconvenience at the end of the visit. Plan is as follows: Dietary recommendations. Food recall was done today and patient advised to be on low calorie, low carbohydrate diet. Restrict calories to less than 1500 kcal in 24 hours. Low glycemic index foods and encouraged. Meal replacements were recommended. Advised to use [id number] multivitamins and vitamin D. Advised to use calorie counter and adhere to portion control. Monthly goal is to lose 4-6 pounds Pharmacotherapy. Continue Ozempic (2 MG/DOSE) 8 MG/3ML. Side effects explained to the patient. Goal is to lose 3-5% of body weight in 3 months. Exercise. Patient encouraged to use stationary bike or do low impact exercises. Increase frequency, intensity and duration of exercise. Encouraged to burn at least 250-500 kcal in one session. Assess. Different risk factors discussed with the patient and addressed Advise. Patient was given clear And specific advise that she will comply with Low-calorie diet and try not to exceed more than 1300 kcal in 24 hours. Agree. Mutually agreed to work together to achieve appropriate goals Assist. Motivational interviewing done. Arrange. Follow-up appointment arranged. Counseling. 22 minutes spent Face to face with the patient more than 50% of time was spent counseling Type II diabetes mellitus. She is on right medications. She has seen her travel freight and passenger agent in the past 1 year. Foot care discussed. She does not see an botany technician at this point. Otalgia. Start Levocetirizine Dihydrochloride 5 MG once a day along with Ciprofloxacin-dexa methasone drops into affected ear BID once a day. left shoulder pain DDX calicific tendinitis/bursiti s, osteoarthritis. Ordered x-ray and referral to orthopedics Right hand numbness. Etiology unclear at this point. It can be osteoarthritis or question of nerve injury or compression from her fall. There is no loss of strength or decreased range of motion of the right hand or fingers. Grasp was normal. We will do x-ray and she was advised to observe for the next 3-4 weeks and if there is no improvement we will do EMG study. we answered all her questions and concerns and I also apologized personally before inconvenience and she was advised to activate her [employer] ct which is the fastest and easiest way to communicate with the office. She understood and agreed. Scribe services used to formulate this note under HIPAA compliance and under [place] law mandated for scribe services. Patient aware of service. Verbal consent and written consent taken from the patient. Patient understands and verbalizes understanding of the scribes services and all questions answered regarding scribes services. Patient agrees to use of scribes services. 05/03/2025 Iron deficiency anemia, unspecified (ICD-10 - D50.9) Hortencia is 64 years old ladywith diabetes mellitus type 2 and she follows up with botany technician at [facility], hypertension, acid reflux, generalized anxiety disorder, iron deficiency anemia, multiple joint osteoarthritis and she goes to orthopedic for intra-articular injection and bilateral knee joints. Diabetes mellitus type 2 with unspecified complications. She is currently on Metformin ER 500 mg and she is taking 4 tablets a day along with Ozempic 2 mg every weekly. She follows up with endocrinology at [facility]. She sees ophthalmology once a year. She is losing weight and maintaining. She was advised to do blood work to check A1c, renal function and urine for albumin and creatinine. Hypertension. Blood pressure well controlled on amlodipine 10 mg daily and irbesartan/HCTZ 300/12.5 mg daily. Generalized anxiety disorder. Continue on sertraline 100 mg daily. Iron deficiency anemia. She is on iron supplements and we will check CBC, ferritin levels and iron studies. Right leg pain. Exam is normal. Most likely musculoskeletal pain which started after exercise regimen and stretching. Take Tylenol as needed, cold compresses, regular stretching and avoid strenuous activity. She is not interested in physical therapy at this point. Tinnitus right ear. It can be early signs of sensory neural hearing loss. Discussed if needed we will refer to ENT. Overweight. She was encouraged on losing weight. Her goal weight should be 160 pounds. Continue current regimen. Screening blood work ordered. 05/03/2025 Pain in right leg (ICD-10 - M79.604) Hortencia is 64 years old ladywith diabetes mellitus type 2 and she follows up with botany technician at [facility], hypertension, acid reflux, generalized anxiety disorder, iron deficiency anemia, multiple joint osteoarthritis and she goes to orthopedic for intra-articular injection and bilateral knee joints. Diabetes mellitus type 2 with unspecified complications. She is currently on Metformin ER 500 mg and she is taking 4 tablets a day along with Ozempic 2 mg every weekly. She follows up with endocrinology at [facility]. She sees ophthalmology once a year. She is losing weight and maintaining. She was advised to do blood work to check A1c, renal function and urine for albumin and creatinine. Hypertension. Blood pressure well controlled on amlodipine 10 mg daily and irbesartan/HCTZ 300/12.5 mg daily. Generalized anxiety disorder. Continue on sertraline 100 mg daily. Iron deficiency anemia. She is on iron supplements and we will check CBC, ferritin levels and iron studies. Right leg pain. Exam is normal. Most likely musculoskeletal pain which started after exercise regimen and stretching. Take Tylenol as needed, cold compresses, regular stretching and avoid strenuous activity. She is not interested in physical therapy at this point. Tinnitus right ear. It can be early signs of sensory neural hearing loss. Discussed if needed we will refer to ENT. Overweight. She was encouraged on losing weight. Her goal weight should be 160 pounds. Continue current regimen. Screening blood work ordered. 05/03/2025 Overweight (BMI 25.0-29.9) (ICD-10 - E66.3) Hortencia is 64 years old ladywith diabetes mellitus type 2 and she follows up with botany technician at [facility], hypertension, acid reflux, generalized anxiety disorder, iron deficiency anemia, multiple joint osteoarthritis and she goes to orthopedic for intra-articular injection and bilateral knee joints. Diabetes mellitus type 2 with unspecified complications. She is currently on Metformin ER 500 mg and she is taking 4 tablets a day along with Ozempic 2 mg every weekly. She follows up with endocrinology at [facility]. She sees ophthalmology once a year. She is losing weight and maintaining. She was advised to do blood work to check A1c, renal function and urine for albumin and creatinine. Hypertension. Blood pressure well controlled on amlodipine 10 mg daily and irbesartan/HCTZ 300/12.5 mg daily. Generalized anxiety disorder. Continue on sertraline 100 mg daily. Iron deficiency anemia. She is on iron supplements and we will check CBC, ferritin levels and iron studies. Right leg pain. Exam is normal. Most likely musculoskeletal pain which started after exercise regimen and stretching. Take Tylenol as needed, cold compresses, regular stretching and avoid strenuous activity. She is not interested in physical therapy at this point. Tinnitus right ear. It can be early signs of sensory neural hearing loss. Discussed if needed we will refer to ENT. Overweight. She was encouraged on losing weight. Her goal weight should be 160 pounds. Continue current regimen. Screening blood work ordered. 05/03/2025 Dietary counseling and surveillance (ICD-10 - Z71.3) Hortencia is 64 years old ladywith diabetes mellitus type 2 and she follows up with botany technician at [facility], hypertension, acid reflux, generalized anxiety disorder, iron deficiency anemia, multiple joint osteoarthritis and she goes to orthopedic for intra-articular injection and bilateral knee joints. Diabetes mellitus type 2 with unspecified complications. She is currently on Metformin ER 500 mg and she is taking 4 tablets a day along with Ozempic 2 mg every weekly. She follows up with endocrinology at [facility]. She sees ophthalmology once a year. She is losing weight and maintaining. She was advised to do blood work to check A1c, renal function and urine for albumin and creatinine. Hypertension. Blood pressure well controlled on amlodipine 10 mg daily and irbesartan/HCTZ 300/12.5 mg daily. Generalized anxiety disorder. Continue on sertraline 100 mg daily. Iron deficiency anemia. She is on iron supplements and we will check CBC, ferritin levels and iron studies. Right leg pain. Exam is normal. Most likely musculoskeletal pain which started after exercise regimen and stretching. Take Tylenol as needed, cold compresses, regular stretching and avoid strenuous activity. She is not interested in physical therapy at this point. Tinnitus right ear. It can be early signs of sensory neural hearing loss. Discussed if needed we will refer to ENT. Overweight. She was encouraged on losing weight. Her goal weight should be 160 pounds. Continue current regimen. Screening blood work ordered. 05/03/2025 Pulsatile tinnitus, right ear (ICD-10 - H93.A1) Hortencia is 64 years old ladywith diabetes mellitus type 2 and she follows up with botany technician at [facility], hypertension, acid reflux, generalized anxiety disorder, iron deficiency anemia, multiple joint osteoarthritis and she goes to orthopedic for intra-articular injection and bilateral knee joints. Diabetes mellitus type 2 with unspecified complications. She is currently on Metformin ER 500 mg and she is taking 4 tablets a day along with Ozempic 2 mg every weekly. She follows up with endocrinology at [facility]. She sees ophthalmology once a year. She is losing weight and maintaining. She was advised to do blood work to check A1c, renal function and urine for albumin and creatinine. Hypertension. Blood pressure well controlled on amlodipine 10 mg daily and irbesartan/HCTZ 300/12.5 mg daily. Generalized anxiety disorder. Continue on sertraline 100 mg daily. Iron deficiency anemia. She is on iron supplements and we will check CBC, ferritin levels and iron studies. Right leg pain. Exam is normal. Most likely musculoskeletal pain which started after exercise regimen and stretching. Take Tylenol as needed, cold compresses, regular stretching and avoid strenuous activity. She is not interested in physical therapy at this point. Tinnitus right ear. It can be early signs of sensory neural hearing loss. Discussed if needed we will refer to ENT. Overweight. She was encouraged on losing weight. Her goal weight should be 160 pounds. Continue current regimen. Screening blood work ordered. Plan Of Treatment Pending Test Test Name Order Date X ray : Knee, right 2 views 08/01/2024 X ray : Knee, right 2 views 01/27/2024 CBC (COMPLETE BLOOD COUNT) 09/15/2022 COMPREHENSIVE METABOLIC PANEL 09/15/2022 FERRITIN 09/15/2022 FERRITIN 05/18/2022 HEMOGLOBIN AND HEMATOCRIT 09/15/2022 IRON 05/18/2022 IRON & TIBC 09/15/2022 MICROALBUMIN, URINE 09/15/2022 Xray: Limited Hand Right-2 Vws Xray: Shoulder Left-Min 2 Vws 08/30/2024 Future Test Test Name Order Date HEMOGLOBIN A1C WITH EST GLUCOSE 11/18/19 COMPREHENSIVE METABOLIC PANEL 03/02/2023 HEMOGLOBIN A1C WITH EST GLUCOSE 03/02/20 LIPID PANEL 03/02/2023 HEMOGLOBIN A1C WITH EST GLUCOSE 09/01/20 Next Appt Details Provider Name:MARK RATLIFF , 01/16/2026 08:00:00 AM, [address] [place] [address], [place], [id number], Insurance Providers Payer Name Payer Address Payer Phone Subscriber Number Group Number Insured Name Patient Relationship to Insured Coverage Start Date Coverage End Date [facility] [address] [place] [phone] [id number] - patient is the insured 1 Medical (General) History Medical History History ICD Code diabetes mellitus type II, endocrinologi st at [facility] MATTIE hypertension history of depression, seasonal affectiv e disorder sarcoidosis, Dr. Worrell GERD hypercalcemia Arthritis right knee low back pain Surgical History Surgery Date(Month/Year) cholecystectomy 2012 Hospitalization History Reason Date(Month/Year) surgery
== END 2025-07-03 10:12 | disposition home or self-care (01) ==
LOC: HO.HPS 09:20
PROVIDERS: PCP Hospitalist; Visit Provider Hospitalist
DX: D86.9 Sarcoidosis, unspecified (principal); R05.3 Chronic cough; R00.0 Tachycardia, unspecified
CPT/HCPCS: 99214; G2211